=== PATIENT | male | born 1960 | race Caucasian/White ===

== ENCOUNTER 2020-08-03 18:55 | Emergency (ER) | payer OTHER, SELFPAY ==
[2020-08-03 18:59] VITALS: BP 162/100; PULSE 116; RESP 22; TEMP 36.6; O2SAT 100
--- NOTE | 2020-08-03 19:10 | ED.MALEGU ---
HPI - Male Genitourinary General Chief complaint: Urogenital-Male Stated complaint: unable to urinate Time Seen by Provider: 08/03/20 19:09 [facility] Social History Social History Gender identity (if verbalized by the patient): Male Course Vital Signs Vital signs: Vital Signs Temperature 36.6 C 08/03/20 18:59 Pulse Rate 116 H 08/03/20 18:59 Respiratory Rate 22 H 08/03/20 18:59 Blood Pressure 162/100 H 08/03/20 18:59 Pulse Oximetry 100 08/03/20 18:59 Temperature 36.6 C 08/03/20 18:59 Pulse Rate 116 H 08/03/20 18:59 Respiratory Rate 22 H 08/03/20 18:59 Blood Pressure 162/100 H 08/03/20 18:59 Pulse Oximetry 100 08/03/20 18:59
--- NOTE | 2020-08-03 19:20 | ED.MALEGU ---
HPI - Male Genitourinary General Chief complaint: Urogenital-Male Stated complaint: unable to urinate Time Seen by Provider: 08/03/20 19:09 Source: patient Mode of arrival: ambulatory Limitations: no limitations History of Present Illness HPI Narrative: 60 years old white male presents with inability to urinate. Last urination was over 2 hours ago. Patient denies any fever, chills, nausea, vomiting, chest pain, shortness of breath, headache. Patient reported having similar symptoms a few years ago with a diagnosis of urinary retention. Related Data Allergies Allergy/AdvReac Type Severity Reaction Status Date / Time Penicillins Allergy Unknown Verified 08/03/20 19:51 Review of Systems Review of Systems: Narrative: CONSTITUTIONAL: Denies fever, chills, or sweats. EYES: Denies visual changes, redness, or discharge. ENT: Denies rhinorrhea, congestion, sore throat, or otalgia. CARDIOVASCULAR: Denies chest pain, palpitations, or edema. RESPIRATORY: Denies cough or dyspnea. GASTROINTESTINAL: Denies abdominal pain, nausea, vomiting, or diarrhea. GENITOURINARY: Denies dysuria or hematuria. SKIN: Denies rash or itching. MUSCULOSKELETAL: Denies back pain, joint pain, or myalgia. NEUROLOGIC: Denies headache, numbness, or weakness. PSYCHIATRIC: Denies anxiety or depression. PMFSH Past Medical History Medical History (Updated 08/03/20 @ 19:23 by Asim Bravo MD) Urinary retention Social History Social History Gender identity (if verbalized by the patient): Male Exam Narrative: Exam Narrative: General appearance: Well-developed, well-nourished Skin: Normal color Head: Normocephalic, nontraumatic Eyes: Clear conjunctiva ENT: Oropharynx normal, ears normal, nose normal Neck: Supple, nontender Chest and respiratory: Airway patent, no respiratory distress, no accessory muscle use Heart: Regular rate/rhythm Abdomen: Soft, suprapubic tenderness and fullness, no organomegaly, quiet bowel sounds Vascular: Normal peripheral pulses, normal capillary refill. 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 Patient declined to go home with the Soni catheter, inspite of my lengthy explanation that the possibility of recurrent urinary retention within the next 24 hours is very high likely. Patient reported that he will go to his urologist for further evaluation. Date: 08/03/20 Time: 20:04 Vital Signs Vital signs: Vital Signs Temperature 36.6 C 08/03/20 18:59 Pulse Rate 116 H 08/03/20 18:59 Respiratory Rate 22 H 08/03/20 18:59 Blood Pressure 162/100 H 08/03/20 18:59 Pulse Oximetry 100 08/03/20 18:59 Temperature 36.6 C 08/03/20 18:59 Pulse Rate 116 H 08/03/20 18:59 Respiratory Rate 22 H 08/03/20 18:59 Blood Pressure 162/100 H 08/03/20 18:59 Pulse Oximetry 100 08/03/20 18:59 MDM - Male Genitourinary MDM Narrative Medical decision making narrative: Urinary retention secondary to enlarged prostate is my concern. UA, Soni catheter placement ordered. Further plan to follow Differential Diagnosis Differential diagnosis: Likely urinary tract infection and acute retention of urine Lab Data Labs: Lab Results 08/03/20 Range/Units 19:20 Urine Color Colorless (Yellow) Urine Appearance Clear (Clear) Urine pH 6.0 (5.0-9.0) Ur Specific [place] 1.003 (1.001-1.035) Urine Protein Negative (Negative) mg/dL Urine
[2020-08-03] MEDS: LIDOCAINE HCL 2% GEL UROJET 10 ML PKG (19:39)
[2020-08-03 19:43] LABS: Add Urine Microscopic? YES; Appearance Urine Clear (Clear); Bilirubin Urine Negative (Negative); Blood Urine 3+ (Negative); Color Urine Colorless (Yellow); Glucose Urine UA 3+ mg/dL (Negative); Ketones Urine Negative (Negative); Leukocyte Esterase Ur Negative LEU/UL (Negative); Nitrate Urine Negative (Negative); Protein Urine Negative (Negative); RBC Urine 0-2 /hpf (0-2); Urobilinogen Urine Negative mg/dL (<2.0); WBC Urine 0-3 /hpf
[2020-08-03 19:46] LABS: Specific Grav Ur 1.003 (1.001-1.035)
[2020-08-03 20:23] VITALS: BP 125/87; PULSE 86; RESP 17; O2SAT 97
--- NOTE | 2020-08-03 20:23 | PC.NURSE ---
Patient's catheter removed upon patient request.
== END 2020-08-03 20:25 | disposition home or self-care (01) ==
PROVIDERS: Emergency Provider Emergency Medicine
DX: R33.9 Retention of urine, unspecified (principal)
CPT/HCPCS: 51702; 81001; 99283